=== PATIENT | female | born 1970 | race Asian ===

== ENCOUNTER 2020-03-20 09:34 | Emergency (ER) | payer OTHER ==
[~2020-03-20] VITALS: Ht 170.2 cm; Wt 70.7 kg
[2020-03-20 09:41] VITALS: BP 128/82
--- NOTE | 2020-03-20 09:59 | NUR ---
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
== END 2020-03-20 11:11 | disposition home or self-care (01) ==
LOC: ED 10:42
DX: G51.0 Bell's palsy (principal)
CPT/HCPCS: 99283